=== PATIENT | male | born 1990 | race Caucasian/White ===

== ENCOUNTER 2018-12-07 16:43 | Emergency (ER) | payer OTHER ==
[2018-12-07 16:59] VITALS: O2SAT 99
--- NOTE | 2018-12-07 17:02 | ERPHSYRPT ---
- History of Present Illness Time Seen by Provider: 12/07/18 16:50 Source: patient Exam Limitations: no limitations Physician History: 28 y/o ambidextrous white male presents with left shoulder pain. pt did not fall. no direct trauma. pt has sig burning pain when moving left shoulder. pt can move it. hurts most when lifting. Occurred: this morning Method of Injury: unknown Severity of Pain-Max: moderate Severity of Pain-Current: mild Extremities Pain Location: shoulder: left Modifying Factors: Improves With: movement (worsens) Associated Symptoms: none Allergies/Adverse Reactions: No Known Drug Allergies Allergy (Verified 12/07/18 16:59) Home Medications: Dextroamphetamine/Amphetamine [Dextroamp-Amphetamin 20 mg Tab] 20 mg PO DAILY [History] Dextroamphetamine/Amphetamine [Dextroamp-Amphetamin 30 mg Tab] 30 mg PO DAILY [History] Lisinopril 20 mg PO DAILY 12/07/18 [History] hydroCHLOROthiazide [Hydrochlorothiazide] 12.5 mg PO DAILY 12/07/18 [History] Hx Tetanus, Diphtheria Vaccination/Date Given: Yes (up to date) Hx Influenza Vaccination/Date Given: No Hx Pneumococcal Vaccination/Date Given: No - Review of Systems Constitutional: No Symptoms Eyes: No Symptoms Ears, Nose, & Throat: No Symptoms Respiratory: No Symptoms Cardiac: No Symptoms Abdominal/Gastrointestinal: No Symptoms Genitourinary Symptoms: No Symptoms Musculoskeletal: Joint Pain (left shoulder), No Fall, No Injury Skin: No Symptoms Neurological: No Symptoms Psychological: No Symptoms Endocrine: No Symptoms Hematologic/Lymphatic: No Symptoms Immunological/Allergic: No Symptoms All Other Systems: Reviewed and Negative - Past Medical History Pertinent Past Medical History: No Neurological History: No Pertinent History ENT History: No Pertinent History Cardiac History: No Pertinent History Respiratory History: No Pertinent History Endocrine Medical History: No Pertinent History Musculoskeletal History: No Pertinent History GI Medical History: No Pertinent History History: No Pertinent History Psycho-Social History: No Pertinent History Male Reproductive Disorders: No Pertinent History - Past Surgical History Past Surgical History: No Neuro Surgical History: No Pertinent History Cardiac: No Pertinent History Respiratory: No Pertinent History Gastrointestinal: No Pertinent History Genitourinary: No Pertinent History Musculoskeletal: No Pertinent History Male Surgical History: No Pertinent History - Social History Smoking Status: Current every day smoker How long have you smoked: 2 Exposure to second hand smoke: No Drug Use: none Patient Lives Alone: No - Nursing Vital Signs Nursing Vital Signs: Initial Vital Signs Temperature 98.6 F 12/07/18 16:52 Pulse Rate 102 H 12/07/18 16:52 Respiratory Rate 18 12/07/18 16:52 Blood Pressure 169/102 12/07/18 16:52 O2 Sat by Pulse Oximetry 99 12/07/18 16:52 Pain Scale Pain Intensity 0 - Physical Exam General Appearance: no apparent distress, alert, anxiety Eyes, Ears, Nose, Throat Exam: normal ENT inspection, moist mucous membranes Neck Exam: normal inspection, non-tender, supple, full range of motion Cardiovascular/Respiratory Exam: chest non-tender, normal breath sounds, regular rate/rhythm, No no respiratory distress Abdominal Exam: non-tender Back Exam: normal inspection, normal range of motion, No CVA tenderness, No vertebral tenderness Shoulder Exam: normal inspection, no evidence of injury, normal ROM, pain Elbow/Forearm Exam: normal inspection, non-tender, no evidence of injury, normal ROM Wrist Exam: normal inspection, non-tender, no evidence of injury, normal ROM Hand Exam: normal inspection, non-tender, no evidence of injury, normal ROM Neuro/Tendon Exam: normal sensation, normal motor functions, normal tendon functions, responds to pain Mental Status Exam: alert, oriented x 3, cooperative Skin Exam: normal color, warm, dry SpO2 Interpretation: normal O2 Delivery: Room Air - Course Nursing assessment & vital signs reviewed: Yes Ordered Tests: Active Orders 24 hr Category Date Time Status SHOULDER Stat Exams 12/07/18 17:15 Taken - Progress Progress: unchanged Progress Note: 12/07/18 17:39 left shoulder xray-no acute fx or dislocation. Counseled pt/family regarding: diagnosis, need for follow-up, rad results - Departure Departure Disposition: Home Clinical Impression: Left shoulder strain Condition: Stable Critical Care Time: No Referrals: LATRICE MARY MD [Primary Care Provider] - Additional Instructions: add tylenol for pain. no lifting greater than 20 pounds. follow up with primary doctor next week. call for an appointment Prescriptions: Carisoprodol 350 mg [Soma 350 mg] 350 mg PO Q8H PRN PRN #10 tablet PRN Reason: Muscle Spasms Prednisone 10 mg [Deltasone 10 mg] 10 mg PO TID #12 tablet
[2018-12-07] MEDS ORDERED: PERCOCET TABLET 5/325MG PO STA (17:41)
[2018-12-07] MEDS ORDERED: Cyclobenzaprine 10 MG PO ONE (17:42)
[2018-12-07] MEDS ORDERED: DELTASONE 10 MG PO ONE (17:42)
[2018-12-07] MEDS ORDERED: PERCOCET TABLET 5/325MG ONE (17:46)
[2018-12-07] MEDS ORDERED: Cyclobenzaprine 10 MG ONE (17:47)
[2018-12-07 18:02] VITALS: BP 156/98; PULSE 90
--- NOTE | 2018-12-07 20:57 | XRAY ---
Indication: Pain. Comparison: None 3 views of the left shoulder obtained. No bony, articular, or soft tissue abnormalities.
== END 2018-12-07 18:02 | disposition home or self-care (01) ==
LOC: ED 16:43
DX: S46.912A Strain of unspecified muscle, fascia and tendon at shoulder and upper arm level, left arm, initial encounter (principal)
CPT/HCPCS: 73030; 99284; A9270-GY

== ENCOUNTER 2019-11-18 09:12 | Emergency (ER) | payer OTHER ==
[2019-11-18 09:28] VITALS: O2SAT 100
[2019-11-18] MEDS ORDERED: TORAdol 30 mg Injection IM ONE (09:37)
[2019-11-18] MEDS ORDERED: Norflex 60 MG/2 ML IM ONE (09:37)
--- NOTE | 2019-11-18 09:37 | ERPHSYRPT ---
- History of Present Illness Time Seen by Provider: 11/18/19 09:27 Source: patient Exam Limitations: no limitations Patient Subjective Stated Complaint: Back pain Triage Nursing Assessment: Patient ambulated back to ED and transferred self to bed. Patient A+O x3. Patient's skin pink, warm and dry. 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 Patient states the pain is constant aching 6/10 when sitting, but when moving intermittent squeezing 10/10. No visible injuries or bruising noted to lower back. Physician History: 29 years old male presented in the ER with chief complaint of low back pain since Saturday while he was working on his tractor and twisted 5 days ago. Moderate intensity sharp pain with some radiation to right lower extremity without any numbness tingling weakness of lower extremities or loss of bowel or bladder control. Denies having similar symptoms in the past. It got a little more more worse after he did lawnmowing 3 days ago. Timing/Duration: day(s) (5), gradual onset, worse Method of Injury: twisted Quality: sharp, aching Back Pain Location: lumbar spine, paraspinous muscles Severity of Pain-Max: moderate Severity of Pain-Current: moderate Modifying Factors: Improves With: immobilization, movement, rest Associated Symptoms: lower back pain, muscle spasms, No constipation, No problems urinating, No light-headedness, No dizziness, No numbness in legs/feet, No weakness, No sensory/motor loss, No tingling in legs/feet Previous symptoms: same symptoms as today Allergies/Adverse Reactions: No Known Drug Allergies Allergy (Verified 11/18/19 09:20) Home Medications: Dextroamphetamine/Amphetamine [Dextroamp-Amphetamin 30 mg Tab] 30 mg PO DAILY 12/07/18 [History] Hx Tetanus, Diphtheria Vaccination/Date Given: Yes (up to date) Hx Influenza Vaccination/Date Given: No Hx Pneumococcal Vaccination/Date Given: No Immunizations Up to Date: Yes Travel Risk - International Travel Have you traveled outside of the country in past 3 weeks: No - Coronavirus Screening Are you exhibiting any of the following symptoms?: No Close contact with a COVID-19 positive Pt in past 14-21 Days: No - Review of Systems Constitutional: No Symptoms Eyes: No Symptoms Ears, Nose, & Throat: No Symptoms Respiratory: No Symptoms Cardiac: No Symptoms Abdominal/Gastrointestinal: No Symptoms Genitourinary Symptoms: No Symptoms Musculoskeletal: Back Pain Skin: No Symptoms Neurological: No Symptoms Psychological: No Symptoms Endocrine: No Symptoms Hematologic/Lymphatic: No Symptoms Immunological/Allergic: No Symptoms - Past Medical History Pertinent Past Medical History: No Neurological History: No Pertinent History ENT History: No Pertinent History Cardiac History: Hypertension Respiratory History: No Pertinent History Endocrine Medical History: No Pertinent History Musculoskeletal History: No Pertinent History GI Medical History: No Pertinent History History: No Pertinent History Psycho-Social History: No Pertinent History Male Reproductive Disorders: No Pertinent History - Past Surgical History Past Surgical History: No Neuro Surgical History: No Pertinent History Cardiac: No Pertinent History Respiratory: No Pertinent History Gastrointestinal: No Pertinent History Genitourinary: No Pertinent History Musculoskeletal: No Pertinent History Male Surgical History: No Pertinent History - Social History Smoking Status: Never smoker How long have you smoked: 2 Exposure to second hand smoke: Yes Drug Use: none Patient Lives Alone: No - Nursing Vital Signs Nursing Vital Signs: Initial Vital Signs Temperature 97.9 F 11/18/19 09:22 Pulse Rate 63 11/18/19 09:22 Respiratory Rate 18 11/18/19 09:22 Blood Pressure 164/101 11/18/19 09:22 O2 Sat by Pulse Oximetry 100 11/18/19 09:22 Pain Scale Pain Intensity 6 - Physical Exam General Appearance: no apparent distress, alert Eye Exam: PERRL/EOMI, eyes nml inspection Ears, Nose, Throat Exam: normal ENT inspection, TMs normal, pharynx normal Neck Exam: normal inspection, non-tender, supple, full range of motion Respiratory Exam: normal breath sounds, lungs clear Cardiovascular Exam: regular rate/rhythm, normal heart sounds, normal peripheral pulses Gastrointestinal Exam: soft, normal bowel sounds, No tenderness Back Exam: normal inspection, normal range of motion, muscle spasm, other (Sacroiliac area and paraspinal lumbar tenderness.), No CVA tenderness, No vertebral tenderness Extremity Exam: normal inspection, normal range of motion, pelvis stable Neurologic Exam: alert, oriented x 3, cooperative, normal mood/affect, nml cerebellar function, nml station & gait, sensation nml Skin Exam: normal color SpO2 Interpretation: normal SpO2: 100 O2 Delivery: Room Air - Course Nursing assessment & vital signs reviewed: Yes Ordered Tests: Medication Summary Discontinued Medications Generic Name Dose Route Start Last Admin Trade Name Paddyq PRN Reason Stop Dose Admin Ketorolac Tromethamine 30 mg 11/18/19 09:37 11/18/19 09:42 Toradol 30 Mg Injection IM 11/18/19 09:38 30 mg STAT ONE Administration Ketorolac Tromethamine Confirm 11/18/19 09:42 Toradol 30 Mg Injection Administered 11/18/19 09:43 Dose 30 mg .ROUTE .STK-MED ONE Orphenadrine Citrate 60 mg 11/18/19 09:37 11/18/19 09:43 Norflex 60 Mg/2 Ml IM 11/18/19 09:38 60 mg STAT ONE Administration Orphenadrine Citrate Confirm 11/18/19 09:42 Norflex 60 Mg/2 Ml Administered 11/18/19 09:43 Dose 60 mg .ROUTE .STK-MED ONE - Progress Progress: improved, re-examined Progress Note: 11/18/19 11:03 1 Toradol and Norflex, on reevaluation pain is improved. Wants to go home. Has no neuro findings in lower extremities. I believe is more of a strain. Has no midline tenderness. Do not think needs any imaging. Stable for discharge on muscle relaxant and naproxen which he has at home. Discussed signs symptoms of worsening needing return to ER which he seems understanding. Counseled pt/family regarding: diagnosis, need for follow-up - Departure Departure Disposition: Home Clinical Impression: Low back strain Qualifiers: Encounter type: initial encounter Qualified Code(s): S39.012A - Strain of muscle, fascia and tendon of lower back, initial encounter Condition: Stable Critical Care Time: No Referrals: LATRICE MARY MD [Primary Care Provider] - Follow Up with PCP/3 days Instructions: Low Back Pain (DC) Additional Instructions: Take naproxen which you have at home as needed twice a day. Take Flexeril as needed. Follow-up with your primary care for reevaluation. Return to ER for intractable back pain, numbness tingling/weakness of lower extremities or loss of bowel or bladder control. Prescriptions: Cyclobenzaprine HCl 10 mg [Flexeril 10 MG] 10 mg PO Q8HPRN PRN #30 tablet PRN Reason: Pain
[2019-11-18] MEDS ORDERED: Norflex 60 MG/2 ML ONE (09:42)
[2019-11-18] MEDS ORDERED: TORAdol 30 mg Injection ONE (09:42)
[2019-11-18 11:06] VITALS: BP 158/94; PULSE 54
== END 2019-11-18 11:07 | disposition home or self-care (01) ==
LOC: ED 09:12
DX: S39.012A Strain of muscle, fascia and tendon of lower back, initial encounter (principal); M54.5 Low back pain; X50.0XXA Overexertion from strenuous movement or load, initial encounter
CPT/HCPCS: 96372; 99284; J1885; J2360